=== PATIENT | female | born 1955 | race Caucasian/White ===

== ENCOUNTER 2019-08-13 07:35 | Outpatient (CLI) | payer BC ==
[2019-08-13] MEDS ORDERED: Iopamidol 370 76% 100 ML VIAL ONE (09:39)
--- NOTE | 2019-08-13 09:43 | CT ---
CT OF THE ABDOMEN AND PELVIS WITH AND WITHOUT CONTRAST: INDICATION: Right-sided abdominal pain that extends into the pelvis on and off for 1 month with a history of cerv ical cancer and hysterectomy. COMPARISON: None. FINDINGS: The lung bases are clear. No suspicious focal hepatic lesion is evident. There is a tiny suspected cyst within the right hepat ic lobe. The gallbladder, pancreas, and adrenal glands are normal-appearing. Spleen and multiple sm all splenules are stable-appearing. There is a 3.9 cm cyst involving the superior pole of the left kidney. No hydronephrosis is evident. Small subcentimeter cyst is seen involving the right kidney. There are mild vascular calcifications involving the abdominal aorta. No enlarged lymph nodes or free fluid is evident. The visualized bladder, rectum, and perirectal soft tissues appear within normal limits. There is a mild amount of retained stool within the colon. There are a few scattered colonic diverticula withou t evidence of active diverticulitis. There is a normal right lower quadrant appendix. The right adn exa is present and appears within normal limits. The uterus and left adnexa are not seen and presume d to be surgically absent. No definite acute osseous abnormality is evident. There is scattered degenerative and osteoarthritic change. IMPRESSION: 1. No definite CT explanation for the patient's right-sided abdominal pain. 2. Bilateral renal cysts. 3. Colonic diverticulosis with a mild amount of retained stool within the colon. 4. Hysterectomy and left oophorectomy. 5. No overt evidence to suggest metastatic disease within the abdomen and pelvis. POS: CET
== END 2019-08-13 07:36 | disposition home or self-care (01) ==
LOC: CT 07:35
PROVIDERS: ATTEND Family Medicine
DX: R10.84 Generalized abdominal pain (principal); K57.30 Diverticulosis of large intestine without perforation or abscess without bleeding; K59.00 Constipation, unspecified; N28.1 Cyst of kidney, acquired; Z90.710 Acquired absence of both cervix and uterus; Z90.721 Acquired absence of ovaries, unilateral
CPT/HCPCS: 74177; 82565; Q9967

== ENCOUNTER 2023-02-26 14:13 | Outpatient (CLI) | payer MEDICARE, OTHER | END 2023-02-26 14:14 | disposition home or self-care (01) | LOC: BICMAMMO 14:13 | PROVIDERS: ATTEND Family Medicine | DX: N64.4 Mastodynia (principal); T85.43XA Leakage of breast prosthesis and implant, initial encounter | CPT/HCPCS: 77066; G0279 ==

== ENCOUNTER 2024-03-31 13:15 | Outpatient (CLI) | payer MEDICARE, OTHER | END 2024-03-31 13:16 | disposition home or self-care (01) | LOC: BICMAMMO 13:15 | PROVIDERS: ATTEND Family Medicine | DX: Z12.31 Encounter for screening mammogram for malignant neoplasm of breast (principal); M85.89 Other specified disorders of bone density and structure, multiple sites; Z80.3 Family history of malignant neoplasm of breast; Z85.41 Personal history of malignant neoplasm of cervix uteri; Z98.82 Breast implant status | CPT/HCPCS: 77063; 77067; 77080 ==